=== PATIENT | female | born 1955 | race Caucasian/White ===

== ENCOUNTER 2023-09-21 11:44 | Observation (INO) | payer MEDICARE, OTHER, SELFPAY ==
[2023-09-21] VITALS (11 sets, daily range): BP systolic 139–182; BP diastolic 80–93; PULSE 73–93; RESP 15–20; TEMP 36.4–36.6; O2SAT 90–95; BMI 28.8
[2023-09-21 11:57] LABS: Glucose Point of Care 117 mg/dL (70-110)
--- NOTE | 2023-09-21 12:00 | ECG_ITS ---
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 Measurements Intervals [place] Rate: 74 P: 55 CO: 186 QRS: -27 QRSD: 86 T: 47 QT: 390 QTc: 434 Interpretive Statements SINUS RHYTHM LOW QRS VOLTAGE IN PRECORDIAL LEADS [QRS DEFLECTION < 1.0 mV IN CHEST LEADS] POSSIBLE ANTERIOR MYOCARDIAL INFARCTION , PROBABLY OLD [30 ms Q WAVE IN V3/V4, OR R < 0.2 mV IN V4] No previous ECG available for comparison Electronically Signed On 09-21-2023 18:34:56 HALL WORKER by Kaiden Tenorio M.D. [id number] f
--- NOTE | 2023-09-21 12:06 | CT_ITS ---
WS: [id number] CT HEAD NONCONTRAST HISTORY: tia TECHNIQUE: Contiguous axial imaging performed through the brain in 2.5 mm imaging. Bone and soft tiss ue windows. Sagittal and coronal reformats reviewed. All CT scans at [facility] use at least one of these dose optimization techniques: automated exposure control; mA and/or kV adjustment per pa tient size (includes targeted exams where dose is matched to clinical indication); or iterative recon struction. DLP: 1094.98 mGy COMPARISON: None available. No acute intracranial hemorrhage, midline shift or mass effect. Mild atrophy with moderate areas of decreased attenuation in the periventricular white matter from sm all vessel ischemic disease. The amount of small vessel ischemic type changes are more prominent than typically seen in a patient of this age. Tiny lacunar infarct in the RIGHT basal ganglia. Ventricles: Normal size with no hydrocephalus. Paranasal sinuses: As visualized are clear. Mastoid air cells: Well pneumatized. Calvarium and scalp: Skull is intact with no soft tissue edema or swelling. IMPRESSION: 1. No acute infarct and no acute hemorrhage or mass effect. 2. Very mild atrophy and moderate small vessel ischemic type changes.
--- NOTE | 2023-09-21 12:06 | XR_ITS ---
WS: [id number] Portable AP upright chest, 09/21/2023 Clinical Data: tia Comparison: None. Findings: No nodules, masses or effusions are seen. The heart is normal. The pulmonary vascularity is not increased. No pneumonia or pneumothorax is seen. There is minimal linear atelectasis over the [place] rface of the left diaphragm. The aortic arch and descending thoracic aorta show calcification and tor tuosity. 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 Impression: Atherosclerosis.
--- NOTE | 2023-09-21 12:09 | PC.PHAR ---
PT STATES ANY MEDICATIONS TODAY CAN BE SENT HERE TO [facility] 09/21/23
--- NOTE | 2023-09-21 12:21 | ED_ITS ---
HPI - Neuro Symptoms/Deficit 2 General: Chief Complaint: Neuro Symptoms/Deficit Stated Complaint: Stroke Like Symptoms Time Seen by Provider: 09/21/23 11:47 Source: patient and EMS Mode of arrival: EMS Limitations: no limitations History of Present Illness: 68-year-old female states that 80 in thi s morning she started having slurred speech she is seen at the clinic was given aspirin and sent home states that she did having slurred speech again all seen at another clinic and they noticed a left facial droop they called EMS patient's symptoms have completely resolved since then. She has no history of TIA or stroke in the past. She denies any weakness denies any blurred vision. Associated symptoms: Deny chest pain, headache(s), nausea or vomiting Review of Systems 2 Const: Denies: fever(s), chills, body aches or change in appetite Eyes: Denies: blurry vision or eye discomfort ENMT: Denies: throat pain or dental pain Card: Denies: chest pain Resp: Denies: dyspnea GI: Denies: abdominal pain, nausea, vomiting or diarrhea Musc: Denies: neck pain or back pain Skin/Breast: Denies: rash Neuro: Reports: Slurred speech present; Denies: headache(s) NIH stroke score 2 NIHSS: Level Of Consciousness - 1a: 0 Level Of Consciousness Questions - 1b: Both Correct Level Of Consciousness Commands - 1c: Both Correct Best Gaze - 2: Normal Visual Blankenship - 3: No Visual Loss Facial Palsy - 4: N ormal Motor Arm Right - 5: No Drift Motor Arm Left - 5: No Drift Motor Leg Right - 6: No Drift Motor Leg Left - 6: No Drift Limb Ataxia - 7: A bsent Sensory - 8: Normal Best Language - 9: No Aphasia Dysarthia - 10: Normal Extinction And Inattention - 11: 0 Score: Total Score: 0 Physical Exam 2 Const: COMMON NORMALS: no acute distress, patient oriented x3 and healthy appearing HENMT: COMMON NORMALS: normocephalic and atraumatic HEAD & SCALP: n ormocephalic and atraumatic Eye: COMMON NORMALS: Equal, round and reactive pupils present and EOMs intact bilaterally VISUAL BLANKENSHIP: No peripheral vision loss, No left visual field cut, No right visual field cut, No bitemporal visual field cut, No binasal visual field cut and No visual field cut by quadrant PUPIL: Yes Equal, round and reactive pupils present Neck/C-Spine: COMMON NORMALS: full ROM and supple Chest: COMMONS NORMALS: normal inspection of the chest and normal palpation of entire chest wall Resp: COMMON NORMALS: normal respiratory effort, No retractions, No use of accessory muscles and clear to auscultation bilaterally AUSCULTATION: clear to auscultation bilaterally Cardio: COMMON NORMALS: regular rate, regular rhythm and No murmurs present (Cardio) RATE: regular rate RHYTHM: regular rhythm GI: COMMON NORMALS: Normal to inspection, nondistended, normoactive bowel sounds present, Soft to palpation, non-tender and no masses PALPATION: Yes Soft to palpation Extremity: COMMON NORMALS: normal to inspection and full ROM Neuro: COMMON NORMALS: patient oriented x3, moves all extremities and no focal motor deficits CRANIAL NERVES: Yes CN normal except as noted SPEECH: s peech normal GAIT: Yes Normal gait present MOTOR EXAM: 5/5 motor strength present throughout Psych: COMMON NORMALS: mental status grossly normal, Normal thought process present and cooperative THOUGHT PROCESS: Normal thought process present Skin: COMMON NORMALS: no rashes or lesions noted and no wounds GENERAL SKIN EXAM: no rashes or lesions noted Course 2 Vital Signs: Vital signs: Vital Signs Temperature 97.6 F 09/21/23 11:45 Pulse Rate 88 09/21/23 13:42 Respiratory Rate 20 H 09/21/23 13:42 Blood Pressure 145/82 09/21/23 13:42 Pulse Oximetry 95 09/21/23 13:42 Oxygen Delivery Me thod Room Air 09/21/23 13:42 MDM - Neuro Symptoms/Deficit Medical Decision Making Patient presents here with a TIA patient's symptoms she had earlier completely resolved head CT CTA is normal patient has no previous history of stroke or TIA spoke to hospitalist will admit for observation she is given aspirin in the clinic. Medical Records I reviewed the patient's medical records. Lab Data I reviewed the patient's lab results. 09/21/23 12:30 09/21/23 12:30 Laboratory Results WBC 4.78 10^3/uL (3.29-11.43) 09/21/23 12:30 RBC 5.01 10^6/uL (3.85-5.65) 09/21/23 12:30 Hgb 16.30 g/dL (11.27-16.99) 09/21/23 12:30 Hct 48.4 % (36-47) H 09/21/23 12:30 MCV 96.6 fl (85-98) 09/21/23 12:30 MCH 32.5 pg (27-33) 09/21/23 12:30 MCHC 33.7 g/dL (30-55) 09/21/23 12:30 RDW 13.2 % (12.1-15.1) 09/21/23 12:30 Plt Count 181 10^3/cmm (157-399) 09/21/23 12:30 MPV 10.3 fL (7.4-10.4) 09/21/23 12:30 Neut % (Auto) 66.1 % 09/21/23 12:30 Lymph % (Auto) 23.0 % 09/21/23 12:30 Cecil % (Auto) 8.2 % 09/21/23 12:30 Eos % (Auto) 0.8 % 09/21/23 12:30 Baso % (Auto) 1.7 % 09/21/23 12:30 Neut # (Auto) 3.16 10^3/uL (1.8-7.7) 09/21/23 12:30 Lymph # (Auto) 1.1 10^3/uL (0.8-4.8) 09/21/23 12:30 Cecil # (Auto) 0.4 10^3/uL (0.2-0.9) 09/21/23 12:30 Eos # (Auto) 0.0 10^3/uL (0.0-0.8) 09/21/23 12:30 Baso # (Auto) 0.1 10^3/uL (0.0-0.1) 09/21/23 12:30 Nucleated RBC % (auto) 0 % 09/21/23 12:30 Nucleated RBCs # 0.0 /100WBC 09/21/23 12:30 PT Cancelled 09/21/23 12:30 INR Cancelled 09/21/23 12:30 Sodium 141 mmol/L (136-145) 09/21/23 12:30 Potassium 4.2 mmol/L (3.5-5.1) 09/21/23 12:30 Chloride 104 mmol/L (98-107) 09/21/23 12:30 Carbon Dioxide 25 mmol/L (22-29) 09/21/23 12:30 Anion Gap 16.2 (5-19) 09/21/23 12:30 BUN 16 mg/dL (8-23) 09/21/23 12:30 Creatinine 0.6 mg/dL (0.5-0.9) 09/21/23 12:30 GFR Calculation 99.4 mL/min (90-130) 09/21/23 12:30 Glucose 111 mg/dL (65-115) 09/21/23 12:30 POC Glucose 117 mg/dL (70-110) H 09/21/23 11:55 Calculated Osmolality 294 mOsm/kg (285-295) 09/21/23 12:30 Calcium 9.5 mg/dL (8.5-10.5) 09/21/23 12:30 Total Bilirubin 0.6 mg/dL (0.15-1.2) 09/21/23 12:30 AST 24 U/L (0-32) 09/21/23 12:30 ALT 22 U/L (0-33) 09/21/23 12:30 Alkaline Phosphatase 96 U/L (35-105) 09/21/23 12:30 Total Protein 7.2 g/dL (6.6-8.7) 09/21/23 12:30 Albumin 4.5 g/dL (3.5-5.2) 09/21/23 12:30 Globulin 2.7 g/dL (1.3-4.6) 09/21/23 12:30 All radiology interpretation(s) finalized by discharge EKG Data EKG 1: I personally reviewed and interpreted this EKG as follows: EKG interpretation date: 09/21/23 EKG interpretation time: 12:00 Interpretation: nsr hr [address] or t wave abnormaliies qrs 86 qtc 418 Discharge Plan Discharge Patient Disposition: Placed in Observation Clinical Impression: Brain TIA Condition: Stable Prescriptions: No Action Zyrtec 10 mg Tablet 10 mg PO DAILY amlodipine 5 mg tablet 5 mg PO DAILY valsartan 320 mg tablet 320 mg PO DAILY Coding Level of Care Code ED Caseworker Protective Services for g Ismael
--- NOTE | 2023-09-21 12:24 | CT_ITS ---
WS: [id number] CT ANGIOGRAM CEREBRAL AND CAROTID ARTERIES HISTORY: cva, right-sided facial droop. TECHNIQUE: CT angiogram is performed of the carotid and cerebral arteries. During arterial injection imaging is obtained from the skull vertex to the aortic arch in 1.25 mm imaging. Coronal and sagittal reformats are submitted. Additional multi planar reformats of the carotid and cerebral arteries are submitted, MIP imaging also reviewed. NASCET criteria utilized. [facility] at least one of these dose optimization techniques: automated exposure control; mA and/or kV adjust ment per patient size (includes targeted exams where dose is matched to clinical indication); or iter ative reconstruction. CONTRAST: Omnipaque 350; 100 mL IV. DLP: 503.78 mGy.cm COMPARISON: Noncontrast CT 09/21/2023. Carotid Angiogram: Right carotid: Common carotid artery: Arises normally from the innominate artery. No significant plaque or stenosis. Internal carotid artery: Small amount of plaque at the carotid bifurcation. ICA is intact. External carotid artery: Patent. Left carotid: Common carotid artery: Arises normally from the aorta. No significant plaque or stenosis. Internal carotid artery: Small amount of calcified plaque at the bifurcation. No stenosis. External carotid artery: Patent. Right vertebral artery: Unremarkable. Left vertebral artery: Unremarkable. Arises normally from the subclavian artery. Subclavian arteries: No stenosis or significant abnormality. Upper thorax: Lungs are clear. Moderate calcification in the aorta. Thyroid gland: Normal. Osseous structures: Unremarkable. CEREBRAL ANGIOGRAM: Intracranial vertebral arteries: Normal with no significant atherosclerosis. Basilar artery: No significant stenosis or occlusion. No aneurysm. Intracranial Internal carotid arteries: Demonstrates no significant stenosis or plaque. Middle cerebral arteries: Normal. Anterior cerebral arteries and ACOM: Normal. Posterior cerebral arteries and PCOM's: Normal. Dural venous sinuses are normally enhancing. Mastoid air cells: Normal. Paranasal sinuses: Normal. Calvarium: Normal. IMPRESSION: 1. No significant cervical or intracranial carotid artery stenosis. Mild calcified plaque at the car otid bifurcations. 2. No cerebral artery aneurysm or occlusion. 3. Atherosclerotic plaque aortic arch.
[2023-09-21 12:38] LABS: Basophils # 0.1 10^3/uL (0.0-0.1); Basophils % 1.7 %; Eosinophils % 0.8 %; Hematocrit 48.4 % (36-47); Lymphocytes # 1.1 10^3/uL (0.8-4.8); Mean Corpuscular HGB Conc 33.7 g/dL (30-55); Mean Corpuscular Hemoglobin 32.5 pg (27-33); Mean Corpuscular Volume 96.6 fl (85-98); Mean Platelet Volume 10.3 fL (7.4-10.4); Monocytes # 0.4 10^3/uL (0.2-0.9); Monocytes % 8.2 %; Neutrophils # 3.16 10^3/uL (1.8-7.7); Neutrophils % 66.1 %; Nucleated Red Blood Cells % 0 %; Platelet Count 181 10^3/cmm (157-399); Red Blood Count 5.01 10^6/uL (3.85-5.65); Red Cell Distribution Width 13.2 % (12.1-15.1); White Blood Count 4.78 10^3/uL (3.29-11.43)
[2023-09-21 13:03] LABS: Alanine Aminotransferase 22 U/L (0-33); Albumin Level 4.5 g/dL (3.5-5.2); Alkaline Phosphatase 96 U/L (35-105); Aspartate Amino Transferase 24 U/L (0-32); Blood Urea Nitrogen 16 mg/dL (8-23); Calcium 9.5 mg/dL (8.5-10.5); Carbon Dioxide 25 mmol/L (22-29); Chloride 104 mmol/L (98-107); Globulin 2.7 g/dL (1.3-4.6); Glomerular Filtration Rate 99.4 mL/min (90-130); Glucose 111 mg/dL (65-115); Osmolality Calculated 294 mOsm/kg (285-295); Sodium 141 mmol/L (136-145); Total Bilirubin 0.6 mg/dL (0.15-1.2); Total Protein 7.2 g/dL (6.6-8.7)
[2023-09-21] MEDS: iohexol 350 mg/mL 500 mL Btl (per mL) IV (13:33)
[2023-09-21 13:35] LABS: Anion Gap 16.2 (5-19); Potassium 4.2 mmol/L (3.5-5.1)
--- NOTE | 2023-09-21 13:48 | ECG_ITS ---
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 Measurements Intervals [place] Rate: 85 P: 41 TN: 198 QRS: -35 QRSD: 94 T: 40 QT: 396 QTc: 471 Interpretive Statements SINUS RHYTHM LEFT AXIS DEVIATION [QRS AXIS < -30] LOW QRS VOLTAGE IN PRECORDIAL LEADS [QRS DEFLECTION < 1.0 mV IN CHEST LEADS] ANTERIOR MYOCARDIAL INFARCTION , PROBABLY OLD [40+ ms Q WAVE AND/OR ST/T ABNORMALITY IN V3/V4] INTERPRETATION BASED ON A DEFAULT AGE OF 40 YEARS Compared to ECG 09/21/2023 12:00:07 Left-axis deviation now present Myocardial infarct finding still present Electronically Signed On 09-21-2023 18:34:52 AUDIO PRODUCTION ENGINEER by Kaiden Tenorio M.D. [id number]
[2023-09-21 14:03] LABS: INR 0.99 (0.8-1.2)
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
--- NOTE | 2023-09-21 17:19 | USCV_ITS ---
Rosalind Concepcion Age: 68 Gender: F : 1955 Exam Date: 09/21/2023 18:15 Ordering Phys: George Shen MD Technologist: Aj Rutherford [place] [facility] [place]: TIA - slurred speech, LEFT facial droop, now resolved. No history of cardiac intervention. Long-term smoker continues smoking. .BUBBLE STUDY IS ORDERED. BP: 170 / 93 HR: 81 Rhythm: Sinus Technical Quality: Adequate MEASUREMENTS (Male / Female) Normal Values 2D ECHO LV Diastolic Diameter PLAX 3.1 cm 4.2 - 5.9 / 3.9 - 5.3 cm LV Systolic Diameter PLAX 2.1 cm IVS Diastolic Thickness 1.7 cm 0.6 - 1.0 / 0.6 - 0.9 cm IVS Systolic Thickness 2.2 cm LVPW Diastolic Thickness 1.5 cm 0.6 - 1.0 / 0.6 - 0.9 cm LVPW Systolic Thickness 2.0 cm LVOT Diameter 1.9 cm LV Ejection Fraction 2D Teich 65.2 % LV Ejection Fraction MOD 2C 62.6 % LV Ejection Fraction 2C AL 63.0 % LA Diameter 3.6 cm LA Width 3.5 cm LA Height 6.3 cm RA Width 3.8 cm RA Height 4.5 cm Aorta at Sinotubular Diameter 3.1 cm IVC Diameter 1.8 cm M-MODE Aortic Annulus Diameter 3.9 cm LA Ao Ratio MM 1.1 MV E Point Septal Separation 0.2 cm DOPPLER AV Peak Velocity 151.0 cm/s LVOT Peak Velocity 108.0 cm/s AV Area Cont Eq vti 2.1 cm squared AV Area Cont Eq pk 2.0 cm squared MV Peak Velocity 139.0 cm/s MV Area PHT 2.3 cm squared Mitral E to A Ratio 0.7 MV E' Velocity 45.0 cm/s Mitral E to MV E' Ratio 15.5 Mitral E to LV E' Lateral Ratio 17.7 Mitral E to LV E' Septal Ratio 13.7 TV Peak E Velocity 50.0 cm/s PV Peak Velocity 124.0 cm/s RV Acceleration Time 0.1 s RV Ejection Time 0.3 s RV AcT/ET 0.2 FINDINGS Left Ventricle Normal left ventricular size and systolic function, EF 65 %. No regional wall motion abnormalities. Mild left ventricular hypertrophy. Right Ventricle Normal right ventricular size and systolic function. Right Atrium The right atrium is normal in size. Left Atrium The left atrium is normal in size. Mitral Valve No gross abnormalities Aortic Valve No gross abnormalities noted Tricuspid Valve No gross abnormalities noted Pulmonic Valve Pulmonic valve not well visualized. Pericardium Normal pericardium without effusion. Aorta Aortic root IVC The inferior vena cava appears normal. CONCLUSIONS Normal left ventricular size and systolic function, EF 65 %. No regional wall motion abnormalities. Mild left ventricular hypertrophy. Normal cardiac chamber sizes. No gross valvular abnormalities. There is no pericardial effusion. There are no intracardiac masses. No similar previous studies are available for comparison Dr Lali Jalloh MD FACC (Electronically Signed) Final Date: 22 September 2023 15:22 S
[2023-09-21] MEDS: clopidogrel 75 mg Tablet PO (18:32)
[2023-09-21] MEDS: enoxaparin 40 mg/0.4 mL Syringe SUBCUT (18:33)
[2023-09-21] MEDS: atorvastatin 40 mg Tablet PO (21:45)
[2023-09-22 00:12] VITALS: PULSE 81
[2023-09-22 03:47] VITALS: BP 142/73; PULSE 61; RESP 15; TEMP 36.6; O2SAT 94
[2023-09-22 06:10] LABS: Chol HDL Ratio 2.85 mg/dL (0.0-4.40); Cholesterol 174 mg/dL (0-200); HDL Cholesterol 61 mg/dL (60-100); LDL Cholesterol Calculated 91 mg/dL (50-129); LDL HDL Ratio 1.49 RATIO (0.00-3.22); Triglycerides 109 mg/dL (0-150)
[2023-09-22 06:42] VITALS: PULSE 81
[2023-09-22 07:00] VITALS: BP 148/76; PULSE 65; RESP 17; TEMP 36.4; O2SAT 93
[2023-09-22 08:50] VITALS: BP 148/76
[2023-09-22] MEDS: amlodipine 5 mg Tablet PO (08:50)
[2023-09-22] MEDS: losartan 50 mg Tablet PO (08:50)
[2023-09-22] MEDS: cetirizine 10 mg Tablet PO (08:50)
[2023-09-22] MEDS: aspirin 81 mg EC Tablet 162 MG PO (08:50)
[2023-09-22] MEDS: clopidogrel 75 mg Tablet PO (08:50)
--- NOTE | 2023-09-22 08:53 | PC.CHAP ---
Pastoral Care Encounter/Spiritual Assessment Type of Contact [] Declined hadoop admin visit [] Patient/Family/Request visit [] Outpatient visit [] Follow-up visit [] Physician referral [] Code/Alert [x] Routine visit [] Staff referral [] Actively dying [] Patient sleeping [] Family support [] [] Out of room [] Palliative care [] [] Receiving care in room [] Pre-surgical visit [] Trauma [] Long length of stay [] ICU visit [] Other: Relational/Emotional Strength [x] Patient feels connected with others/family/visitors/staff [] Distress [] Loneliness/isolation [] Abandonment Spirituality of Patient [x] Person of Kristie [] Attends Rastafari of their Kristie [x] Believes in Prayer [] Reads Bible or Yarsanism materials [] There are Spiritual issues to be addressed 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 Interventions [x] Prayer [x] Active listening [] Non-anxious presence [x] Spiritual/emotional support [] Crisis/trauma care [] Spiritual counseling [] Bereavement support [] Provided bereavement packet [] Provided Bible/devotional materials [] Provided toy/stuffed animal, coloring book to patient or family member [] Provided Communion [] Anointing/[place] [] Salvation [x] Completed spiritual assessment [] Other: Impact on Illness or Injury [] Angry [] Fearful [] Anxious [] Often cries [] Exhaustion [] Unable to work [] Unable to attend evangelical [] Unable to walk/stand [] Unable to read [] Unable to drive [] Unable to eat/drink [] Unable to sleep [] Unable to be with family [] Patient intubated [] Other: Summary Time spent with patient 5 min
[2023-09-22 11:00] VITALS: BP 146/89; PULSE 73; RESP 18; TEMP 36.7; O2SAT 94
--- NOTE | 2023-09-22 12:21 | PM.DCS ---
Discharge Providers Date of Admission: 09/21/23 15:30 Date of Discharge: September 22, 2023 Attending Provider at Admission: George Shen Attending Provider at Discharge: George Shen Diagnoses at Discharge Discharge Diagnosis (1) Brain TIA: Status: Acute (2) Smoking: Status: Acute Reason for Visit Reason for Visit: Stroke Like Symptoms Brief History: Pleasant 68-year-old lady with history of hypertension, current smoker, came to ER for evaluation due to having to 30-minute episodes of slurred speech, left-sided facial droop this morning which resolved spontaneously. She saw her primary provider who gave her 2 aspirins, she denies ever having episodes like this in the past. Hospital Course Hospital Course She underwent additional assessment following suspected TIA, was treated with aspirin, also started on Plavix for the next 21 days, statin, as discussed with her she will be working on multiple risk factors including stopping smoking, abstaining from any alcohol, as well as monitoring her blood pressures. Her medications for blood pressure were recently adjusted. Echocardiogram in the hospital with normal ejection fraction, mild LVH. She was monitored on telemetry. Noted minimal hyperglycemia 117 and one of the labs, please follow-up glucose, consider assessment of A1c. On discharge she is referred for additional assessment with MRI brain, follow-up with neurology. She knows to seek medical attention immediately in case of any symptoms of CVA. Physical Exam Narrative: Reports she is doing very well, without any return of symptoms. Feels like her usual baseline. Const: COMMON NORMALS: patient oriented x3 and alert GENERAL APPEARANCE: cooperative ORIENTATION/CONSCIOUSNESS: Yes awake HENMT: COMMON NORMALS: oropharynx normal Neck/C-Spine: COMMON NORMALS: no JVD Resp: COMMON NORMALS: normal respiratory effort and clear to auscultation bilaterally AUSCULTATION: clear to auscultation bilaterally Cardio: COMMON NORMALS: no JVD, regular rhythm, S1 normal heart sound present, S2 normal heart sound present and No murmurs present (Cardio) RHYTHM: regular rhythm HEART SOUNDS: S1 normal heart sound present and S2 normal heart sound present GI: COMMON NORMALS: Normal to inspection, nondistended, normoactive bowel sounds present, Soft to palpation and non-tender PALPATION: Yes Soft to palpation Extremity: COMMON NORMALS: no joint enlargement and no pedal edema OTHER: Chronic edema of RLE. Neuro: COMMON NORMALS: patient oriented x3 and moves all extremities SENSORIUM/ORIENTATION: Yes alert OTHER: She is awake and alert, no trouble following directions. Oriented. No slurred speech, no facial droop. No trouble tracking. No visual field deficit. No extremity drift. Mildly weaker right lower extremity with swelling, history of crush injury. Skin: COMMON NORMALS: no rashes or lesions noted GENERAL SKIN EXAM: no rashes or lesions noted Discharge Data Studies Completed and Pending Completed Studies During Hospitalization Category Date Time Status CT head wo con* [id number] Stat Cat Scan 09/21/23 12:06 Completed CTA head neck [CT angio headneck* [id number]] Stat Cat Scan 09/21/23 12:24 Completed XR chest 1V portable [id number] Stat Exams 09/21/23 12:06 Completed Pending at discharge Category Date Time Status CV. echo w/w bubble cont [id number] Routine Ultrasound 09/21/23 17:19 Taken Laboratory Results WBC 4.78 10^3/uL (3.29-11.43) 09/21/23 12:30 RBC 5.01 10^6/uL (3.85-5.65) 09/21/23 12:30 Hgb 16.30 g/dL (11.27-16.99) 09/21/23 12:30 Hct 48.4 % (36-47) H 09/21/23 12:30 MCV 96.6 fl (85-98) 09/21/23 12:30 MCH 32.5 pg (27-33) 09/21/23 12:30 MCHC 33.7 g/dL (30-55) 09/21/23 12:30 RDW 13.2 % (12.1-15.1) 09/21/23 12:30 Plt Count 181 10^3/cmm (157-399) 09/21/23 12:30 MPV 10.3 fL (7.4-10.4) 09/21/23 12:30 Neut % (Auto) 66.1 % 09/21/23 12:30 Lymph % (Auto) 23.0 % 09/21/23 12:30 [place] % (Auto) 8.2 % 09/21/23 12:30 Eos % (Auto) 0.8 % 09/21/23 12:30 Baso % (Auto) 1.7 % 09/21/23 12:30 Neut # (Auto) 3.16 10^3/uL (1.8-7.7) 09/21/23 12:30 Lymph # (Auto) 1.1 10^3/uL (0.8-4.8) 09/21/23 12:30 [place] # (Auto) 0.4 10^3/uL (0.2-0.9) 09/21/23 12:30 Eos # (Auto) 0.0 10^3/uL (0.0-0.8) 09/21/23 12:30 Baso # (Auto) 0.1 10^3/uL (0.0-0.1) 09/21/23 12:30 Nucleated RBC % (auto) 0 % 09/21/23 12:30 Nucleated RBCs # 0.0 /100WBC 09/21/23 12:30 PT 13.40 SECONDS (12.1-14.9) 09/21/23 13:47 INR 0.99 (0.8-1.2) 09/21/23 13:47 Sodium 141 mmol/L (136-145) 09/21/23 12:30 Potassium 4.2 mmol/L (3.5-5.1) 09/21/23 12:30 Chloride 104 mmol/L (98-107) 09/21/23 12:30 Carbon Dioxide 25 mmol/L (22-29) 09/21/23 12:30 Anion Gap 16.2 (5-19) 09/21/23 12:30 BUN 16 mg/dL (8-23) 09/21/23 12:30 Creatinine 0.6 mg/dL (0.5-0.9) 09/21/23 12:30 GFR Calculation 99.4 mL/min (90-130) 09/21/23 12:30 Glucose 111 mg/dL (65-115) 09/21/23 12:30 POC Glucose 117 mg/dL (70-110) H 09/21/23 11:55 Calculated Osmolality 294 mOsm/kg (285-295) 09/21/23 12:30 Calcium 9.5 mg/dL (8.5-10.5) 09/21/23 12:30 Total Bilirubin 0.6 mg/dL (0.15-1.2) 09/21/23 12:30 AST 24 U/L (0-32) 09/21/23 12:30 ALT 22 U/L (0-33) 09/21/23 12:30 Alkaline Phosphatase 96 U/L (35-105) 09/21/23 12:30 Total Protein 7.2 g/dL (6.6-8.7) 09/21/23 12:30 Albumin 4.5 g/dL (3.5-5.2) 09/21/23 12:30 Globulin 2.7 g/dL (1.3-4.6) 09/21/23 12:30 Triglycerides 109 mg/dL (0-150) 09/22/23 04:57 Cholesterol 174 mg/dL (0-200) 09/22/23 04:57 LDL Cholesterol, Calc 91 mg/dL (50-129) 09/22/23 04:57 HDL Cholesterol 61 mg/dL (60-100) 09/22/23 04:57 LDL/HDL Ratio 1.49 RATIO (0.00-3.22) 09/22/23 04:57 Cholesterol/HDL Ratio 2.85 mg/dL (0.0-4.40) 09/22/23 04:57 Vitals Last Vital Signs Temp 98.0 F 09/22/23 11:00 Pulse 73 09/22/23 11:00 Resp 18 09/22/23 11:00 BP 146/89 09/22/23 11:00 Pulse Ox 94 09/22/23 11:00 O2 Del Method Room Air 09/22/23 11:00 FiO2 21 09/21/23 23:27 Discharge Plan Discharge Patient Disposition: Home Condition: Stable Prescriptions: New atorvastatin 40 mg Tablet 40 mg PO BEDTIME Qty: 90 0RF clopidogrel 75 mg Tablet 75 mg PO DAILY Qty: 21 0RF aspirin 81 mg Tablet,Delayed Release (Dr/Ec) 81 mg PO DAILY Qty: 90 0RF Continued Zyrtec 10 mg Tablet 10 mg PO DAILY amlodipine 5 mg tablet 5 mg PO DAILY valsartan 320 mg tablet 320 mg PO DAILY Discharge Orders: Discharge Order (Routine); Ordered 09/22/23 Ordered By: George Shen Other Ambulatory Orders: MR head wo con* [id number] (Routine) Timeframe: 3 Days Facility: [facility] - Location: [facility] Ordered By: George Shen Referrals: [facility] [Provider Group] - 1 week (We have notified your physician's clinic of the need for a follow-up appointment to be scheduled. If you have not heard from them within the next 2 business days, please call them directly. ) Therese Singh NP [Nurse Practitioner] - 09/28/23 10:00 am () Discharge Diet: Diabetic Patient Instructions: Aspirin (By mouth), Clopidogrel (By mouth), Transient Ischemic Attack (GEN), How to Stop Smoking (GEN), Cigarette Smoking and Your Health (GEN), Chronic Hypertension (GEN), Alcohol Withdrawal (GEN), Alcohol Dependence (GEN) Activity Restrictions/Additional Instructions: As discussed, please stop smoking, avoid any alcohol to help reduce chance of recurrent TIA or stroke in the future. Seek medical attention immediately in case of any return of symptoms or other concerning symptoms as discussed. Follow-up with your primary doctor and with neurology for reassessment after TIA. Measure your blood pressures 3 times daily at home, record values to bring to your appointment or bring the blood pressure device if it has memory. Follow-up with your primary doctor for reassessment of blood glucose, as it was minimally elevated at 117. Consider additional assessment for prediabetes. Discharge Attestations Time Spent in Discharge Care*: greater than 30 min Quality Metrics Clinical Quality Measures [ No reported AMI, CVA or VTE this stay] Coding Level of Care Code 91745 Total time (in minutes) for Discharge: 50 Diagnoses Brain TIA G45.9 Smoking F17.200
== END 2023-09-22 13:00 | disposition home or self-care (01) ==
LOC: ER 15:21 → MEDSURG 15:30
PROVIDERS: Admitting Provider Internal Medicine; Emergency Provider Emergency Medicine; Visit Provider Internal Medicine
DX: G45.9 Transient cerebral ischemic attack, unspecified (principal); R29.700 NIHSS score 0; F17.200 Nicotine dependence, unspecified, uncomplicated; I10 Essential (primary) hypertension; F10.90 Alcohol use, unspecified, uncomplicated
CPT/HCPCS: 36415; 36416; 70450; 70496; 70498; 71045; 80053; 80061; 82962; 85025; 85610; 92523; 93005; 94660; 96372; 99285; C8929; G0378; J1650; Q9967

== ENCOUNTER → 2024-03-26 09:00 | Outpatient (BNVA) | payer MEDICARE, OTHER, SELFPAY | PROVIDERS: PCP Nurse Practitioner Family; Visit Provider Nurse Practitioner Family | DX: I10 Essential (primary) hypertension (principal); G45.9 Transient cerebral ischemic attack, unspecified | CPT/HCPCS: 80053; 80061 ==

== ENCOUNTER → 2024-08-05 13:55 | Outpatient (BNVA) | payer MEDICARE, OTHER, SELFPAY | PROVIDERS: PCP Nurse Practitioner Family; Visit Provider Specialist | DX: M25.512 Pain in left shoulder (principal); M19.012 Primary osteoarthritis, left shoulder | CPT/HCPCS: 73030; 99204 ==